=== PATIENT | male | born 1975 | race Two or more races ===

== ENCOUNTER 2017-01-21 16:05 | Inpatient (IN) ==
[2017-01-21 18:12] LABS: Hematocrit 19.9 VOL% (42.0-52.0); Hemoglobin 6.8 GM/DL (14.0-18.0); Immature Granulocytes % 0.6 %; Immature Granulocytes Absolute 0.03 #; Lymphocytes # 0.2 10*3/uL (1.4-4.0); Lymphocytes % 4.3 % (21.2-54.2); Mean Corpuscular HGB Conc 34.2 GM/DL (32-36); Mean Corpuscular Hemoglobin 29 PG (27-34); Mean Corpuscular Volume 84.3 FL (87-102); Mean Platelet Volume 12.9 FL (9.6-12.0); Monocytes # 0.1 10*3/uL (0.11-0.8); Neutrophils # 4.6 10*3/uL (1.4-7.4); Neutrophils % 94.1 % (38.7-73.9); Platelet Count 81 T/CUMM (130-400); Red Blood Count 2.36 MC/CUMM (3.8-5.5); Red Cell Distribution Width 12.4 % (9.3-17.3); White Blood Count 4.9 T/CUMM (4-12)
[2017-01-21 18:32] LABS: Alanine Aminotransferase 26 U/L (16-61); Albumin 3.6 G/DL (3.4-5.0); Alkaline Phosphatase 61 U/L (45-117); Aspartate Amino Transferase 16 U/L (0-37); Bilirubin,Total < 0.39 MG/DL (0.2-1.0); Blood Urea Nitrogen 235 MG/DL (7-18); Glucose 134 MG/DL (74-106); Osmolality,Calculated 344.5 MOS/KG (273-304); Potassium 5.4 MMOL/L (3.5-5.1); Sodium 132 MMOL/L (136-145); Total Protein 6.2 G/DL (6.4-8.3)
[2017-01-21 19:06] LABS: Calcium 5.7 MG/DL (8.5-10.1)
[2017-01-21] MEDS ORDERED: SODIUM CHLORIDE 0.9% 500 ML IV STA (20:10)
[2017-01-21] MEDS ORDERED: CALCIUM GLUCONATE 1,000 MG in SODIUM CHLORIDE 0.9% 100 ML IV ONE (20:11)
[2017-01-21 20:25] LABS: INR 1.1
[2017-01-21] MEDS ORDERED: MAGNESIUM SULF RIDER 2 GM in PREMIX 1 EACH IV STA (20:36)
[2017-01-21] MEDS ORDERED: SODIUM CHLORIDE 0.9% 1,000 ML IV PRN (20:40)
[2017-01-21 20:52] LABS: CKMB % 0.9 %
[2017-01-21] MEDS ORDERED: SODIUM POLYSTYRENE SULFATE 15 GM/60 ML BOTTLE PO STA (20:54)
[2017-01-21] MEDS ORDERED: SODIUM CHLORIDE 0.9% 1,000 ML IV SCH (21:00)
[2017-01-21 21:08] LABS: Ferritin 447.5 ng/ml (26-388)
[2017-01-21 21:09] LABS: Troponin I Only 0.18 NG/ML (0.00-0.045)
[2017-01-21] MEDS ORDERED: SODIUM POLYSTYRENE SULFATE 15 GM/60 ML BOTTLE ONE (21:11)
[2017-01-21 21:23] LABS: Folate 9.5 NG/ML (5.4-24.0)
[2017-01-21 21:25] LABS: ABG Base Excess -13.9 MMOL/L (-2.5-2.5); ABG HCO3 13.4 MMOL/L (20-26); ABG Oxygen Saturation 97.6 % (95-100); ABG PCO2 25.7 MM HG (35-48); ABG PH 7.274 (7.35-7.45); ABG TCO2 11.5 MMOL/L (23-27)
[2017-01-21] MEDS ORDERED: CARVEDILOL 3.125 MG TABLET ONE (21:47)
[2017-01-21] MEDS ORDERED: MAGNESIUM SULF RIDER 50 ML IV ONE (21:47)
[2017-01-21 21:51] LABS: Apearance,Urine CLEAR (Clear); Bilirubin,Urine Negative (Negative); Blood, Urine Small mg/dL (Negative); Glucose,Urine (UA) 50 mg/dL (Negative); Ketones,Urine Negative (Negative); Nitrite,Urine Negative (Negative); Protein,Urine 100 MG/DL; RBC,Urine 1 /HPF (0-4); Urine Color Straw (Yellow); Urine Specific Gravity 1.009 (1.001-1.035); Urine Urobilinogen < 2.0 EU/DL (0.2-1.0); WBC,Urine <1 /HPF (0-6)
[2017-01-21] MEDS: CARVEDILOL 6.25 MG TABLET PO SCH (21:56)
[2017-01-21 21:59] LABS: Barbiturates Screen,Urine Negative (Negative); Benzodiazepines Screen,Urine Negative (Negative); Cannabinoid Screen,Urine Negative (Negative); Opiate Screen,Urine Negative (Negative); Phencyclidine Screen,Urine Negative (Negative)
[2017-01-21 21:59] LABS: Protein/Creatinine Ratio,Urine 3.2 RATIO
[2017-01-21 22:16] LABS: Thyroid Stimulating Hormone 1.14 uIU/ml (0.358-3.74); Uric Acid 8.4 MG/DL (3.5-7.2)
[2017-01-21] MEDS: SODIUM BICARB INJ 100 MEQ in DEXTROSE 5% 1,000 ML IV SCH (22:25)
[2017-01-22 04:06] LABS: Hemoglobin 6.4 GM/DL (14.0-18.0)
[2017-01-22] MEDS: SODIUM BICARB INJ 100 MEQ in DEXTROSE 5% 1,000 ML IV SCH ×4 (04:14→23:41)
[2017-01-22 04:45] LABS: Basophils % 0.2 % (0.0-0.8); Hematocrit 20.1 VOL% (42.0-52.0); Hemoglobin 6.9 GM/DL (14.0-18.0); Immature Granulocytes % 0.3 %; Immature Granulocytes Absolute 0.02 #; Lymphocytes # 0.6 10*3/uL (1.4-4.0); Lymphocytes % 10.3 % (21.2-54.2); Mean Corpuscular HGB Conc 34.3 GM/DL (32-36); Mean Corpuscular Hemoglobin 29 PG (27-34); Mean Corpuscular Volume 84.8 FL (87-102); Mean Platelet Volume 13.3 FL (9.6-12.0); Monocytes # 0.6 10*3/uL (0.11-0.8); Monocytes % 9.8 % (1.7-12.7); Neutrophils # 4.6 10*3/uL (1.4-7.4); Neutrophils % 79.4 % (38.7-73.9); Red Blood Count 2.37 MC/CUMM (3.8-5.5); Red Cell Distribution Width 13.1 % (9.3-17.3); White Blood Count 5.8 T/CUMM (4-12)
[2017-01-22 04:48] LABS: Platelet Count 66 T/CUMM (130-400)
[2017-01-22 05:10] LABS: Potassium 4.2 MMOL/L (3.5-5.1)
[2017-01-22 05:12] LABS: Burr Cells Slight; Elliptocytes Few; Hypochromasia Slight; Platelet Estimate Decreased
[2017-01-22 05:37] LABS: Calcium 5.6 MG/DL (8.5-10.1)
[2017-01-22] MEDS ORDERED: SODIUM CHLORIDE 0.9% 1,000 ML IV PRN (06:47)
[2017-01-22] MEDS ORDERED: CALCIUM GLUCONATE 2,000 MG in SODIUM CHLORIDE 0.9% 100 ML IV ONE (08:40)
[2017-01-22] MEDS ORDERED: CALCIUM GLUCONATE 1,000 MG/10 ML VIAL IV ONE (09:02)
[2017-01-22] MEDS ORDERED: CARVEDILOL 3.125 MG TABLET ONE (09:02)
[2017-01-22] MEDS: CARVEDILOL 6.25 MG TABLET PO SCH ×2 (09:05→20:42)
[2017-01-22 10:29] LABS: Albumin 3.3 G/DL (3.4-5.0); Calcium 6.2 MG/DL (8.5-10.1); Potassium 3.9 MMOL/L (3.5-5.1)
[2017-01-22] MEDS ORDERED: methylPREDNISolone SOD SUC INJ 1,000 MG in SODIUM CHLORIDE 0.9% 100 ML IV ONE (15:00)
[2017-01-22] MEDS ORDERED: CALCIUM GLUCONATE 1,000 MG in SODIUM CHLORIDE 0.9% 100 ML IV ONE (15:00)
[2017-01-22 15:54] LABS: Albumin 3.1 G/DL (3.4-5.0); Calcium 5.9 MG/DL (8.5-10.1); Osmolality,Calculated 351.1 MOS/KG (273-304); Potassium 3.8 MMOL/L (3.5-5.1)
[2017-01-22 16:28] LABS: Hepatitis A Ab IgM Quant 0.25 Index; Hepatitis A Ab IgM Result Negative (Negative); Hepatitis B Core IgM Result Negative (Negative); Hepatitis B Surface Ag Quant < 0.10 Index; Hepatitis B Surface Ag Result Negative (Negative); Hepatitis C Virus Ab Quant < 0.02 Index; Hepatitis C Virus Ab Result Negative (Negative)
[2017-01-23 01:43] LABS: Hematocrit 22.8 VOL% (42.0-52.0); Hemoglobin 7.8 GM/DL (14.0-18.0); Immature Granulocytes % 0.6 %; Immature Granulocytes Absolute 0.02 #; Lymphocytes # 0.1 10*3/uL (1.4-4.0); Lymphocytes % 3.5 % (21.2-54.2); Mean Corpuscular HGB Conc 34.2 GM/DL (32-36); Mean Corpuscular Hemoglobin 29 PG (27-34); Mean Corpuscular Volume 84.8 FL (87-102); Mean Platelet Volume 13.2 FL (9.6-12.0); Monocytes % 1.3 % (1.7-12.7); Neutrophils % 94.6 % (38.7-73.9); Red Blood Count 2.69 MC/CUMM (3.8-5.5); Red Cell Distribution Width 13.2 % (9.3-17.3); White Blood Count 3.2 T/CUMM (4-12)
[2017-01-23 01:50] LABS: Platelet Count 64 T/CUMM (130-400)
[2017-01-23 01:54] LABS: INR 1.2; PT Patient Result 12.5 SECS; Partial Thromboplastin Time 25.9 SECS (0-40)
[2017-01-23 02:11] LABS: Albumin 2.9 G/DL (3.4-5.0)
[2017-01-23 02:15] LABS: Calcium 5.5 MG/DL (8.5-10.1)
[2017-01-23] MEDS ORDERED: CALCIUM GLUCONATE 2,000 MG in SODIUM CHLORIDE 0.9% 100 ML IV ONE ×2 (02:45→13:00)
[2017-01-23 02:55] LABS: Lymphocytes 5 % (20-55); Segmented Neutrophils 94 % (50-85)
[2017-01-23 02:56] LABS: Hypochromasia 1+; Platelet Estimate Decreased
[2017-01-23 02:57] LABS: Ovalocytes Few; Total Cells Counted 100
[2017-01-23] MEDS: SODIUM BICARB INJ 100 MEQ in DEXTROSE 5% 1,000 ML IV SCH ×2 (07:27→15:53)
[2017-01-23] MEDS: PANTOPRAZOLE 20 MG TABLET PO SCH (08:39)
[2017-01-23] MEDS: CARVEDILOL 6.25 MG TABLET PO SCH (08:39)
[2017-01-23 10:13] LABS: Anti SS-A Antibodies < 16 EU/ML; Anti SS-B Antibodies < 16 EU/ML
[2017-01-23] MEDS ORDERED: CLINDAMYCIN INJ 900 MG in PREMIX 1 EACH IV ONE (11:24)
[2017-01-23] MEDS ORDERED: SODIUM CHLORIDE 0.9% 1,000 ML IV PRN (13:00)
[2017-01-23] MEDS ORDERED: BISACODYL 5 MG TABLET PO ONE (13:00)
[2017-01-23] MEDS ORDERED: BUPIVACAINE 0.25% 50 ML VIAL ONE (13:34)
[2017-01-23] MEDS ORDERED: HEPARIN 5,000 UNIT/1 ML VIAL ONE (13:34)
[2017-01-23] MEDS: SODIUM CHLORIDE 0.9% 250 ML IV SCH (14:07)
[2017-01-23] MEDS ORDERED: PROPOFOL 200 MG/20 ML VIAL IV ONE (14:48)
[2017-01-23] MEDS: CARVEDILOL 12.5 MG TABLET PO SCH ×2 (15:42→22:21)
[2017-01-23] MEDS ORDERED: HEPARIN 10,000 UNIT/10 ML VIAL IV PRN (17:42)
[2017-01-23] MEDS: amLODIPine 5 MG TABLET PO SCH (18:38)
[2017-01-23] MEDS: SODIUM BICARBONATE 650 MG TABLET PO SCH ×2 (18:38→22:21)
[2017-01-23] MEDS ORDERED: ZOLPIDEM 5 MG TABLET PO PRN (20:01)
[2017-01-23] MEDS: METHYLPREDNISOLONE SOD SUC IV SCH (22:21)
[2017-01-23] MEDS: SODIUM CHLORIDE 0.9% IV SCH (22:21)
[2017-01-24 06:59] LABS: Hematocrit 30.2 VOL% (42.0-52.0); Hemoglobin 10.8 GM/DL (14.0-18.0); Immature Granulocytes % 0.3 %; Immature Granulocytes Absolute 0.02 #; Lymphocytes # 0.2 10*3/uL (1.4-4.0); Lymphocytes % 3.2 % (21.2-54.2); Mean Corpuscular HGB Conc 35.8 GM/DL (32-36); Mean Corpuscular Hemoglobin 30 PG (27-34); Mean Corpuscular Volume 82.5 FL (87-102); Mean Platelet Volume 12.8 FL (9.6-12.0); Monocytes # 0.1 10*3/uL (0.11-0.8); Monocytes % 0.8 % (1.7-12.7); Neutrophils # 6.1 10*3/uL (1.4-7.4); Neutrophils % 95.7 % (38.7-73.9); Platelet Count 118 T/CUMM (130-400); Red Blood Count 3.66 MC/CUMM (3.8-5.5); Red Cell Distribution Width 13.1 % (9.3-17.3); White Blood Count 6.3 T/CUMM (4-12)
[2017-01-24 07:25] LABS: Burr Cells Slight; Hypochromasia 2+; Lymphocytes 2 % (20-55); Platelet Estimate Decreased; Segmented Neutrophils 97 % (50-85); Total Cells Counted 100
[2017-01-24 07:30] LABS: Albumin 3.3 G/DL (3.4-5.0); Calcium 7.2 MG/DL (8.5-10.1); Osmolality,Calculated 350.8 MOS/KG (273-304)
[2017-01-24] MEDS: SODIUM CHLORIDE 0.9% 250 ML IV SCH ×2 (08:21→14:38)
[2017-01-24] MEDS ORDERED: hydrALAZINE 20 MG/1 ML VIAL IV ONE ×2 (09:59→11:30)
[2017-01-24] MEDS: CARVEDILOL 12.5 MG TABLET PO SCH ×2 (10:34→20:47)
[2017-01-24] MEDS: amLODIPine 5 MG TABLET PO SCH (10:34)
[2017-01-24] MEDS: SODIUM BICARBONATE 650 MG TABLET PO SCH ×3 (10:35→20:47)
[2017-01-24] MEDS: PANTOPRAZOLE 20 MG TABLET PO SCH (10:35)
[2017-01-24] MEDS: hydrALAZINE 20 MG/1 ML VIAL IV PRN ×2 (13:18→22:07)
[2017-01-24 14:54] LABS: Myeloperoxidase Antibodies SEE COMMENTS
[2017-01-24 16:08] LABS: DRVVT Confirmation 0.9 ratio (0.0 - 1.1); DRVVT Mix Ratio (Mayo Reflex) 1.2 ratio (0.0 - 1.1); PT Mix 1:1 (Mayo Reflex) 11.9 sec; Thrombin Time (Bovine), P 20 sec (15 - 23)
[2017-01-24 16:30] LABS: DRVVT Screen Ratio 1.3 ratio (0.0 - 1.1); INR 1.3
[2017-01-24] MEDS: cloNIDine 0.2 MG/24 HR PATCH TRANSDERM SCH (17:37)
[2017-01-24] MEDS: SEVELAMER CARBONATE 800 MG TABLET PO SCH (17:37)
[2017-01-24] MEDS: METHYLPREDNISOLONE SOD SUC IV SCH (20:48)
[2017-01-24] MEDS: SODIUM CHLORIDE 0.9% IV SCH (20:48)
[2017-01-24] MEDS ORDERED: HYDROmorphone 2 MG/1 ML VIAL IV ONE (20:59)
[2017-01-25] MEDS: hydrALAZINE 20 MG/1 ML VIAL IV PRN ×5 (00:57→18:10)
[2017-01-25] MEDS ORDERED: ONDANSETRON 4 MG/2 ML VIAL IV PRN (01:36)
[2017-01-25 07:59] LABS: Calcium 7.2 MG/DL (8.5-10.1); Osmolality,Calculated 338.5 MOS/KG (273-304); Potassium 4.3 MMOL/L (3.5-5.1)
[2017-01-25] MEDS: SODIUM CHLORIDE 0.9% 250 ML IV SCH ×2 (08:45→18:42)
[2017-01-25] MEDS: SEVELAMER CARBONATE 800 MG TABLET PO SCH ×3 (09:34→16:38)
[2017-01-25] MEDS: CARVEDILOL 12.5 MG TABLET PO SCH ×2 (09:34→21:17)
[2017-01-25] MEDS: PANTOPRAZOLE 20 MG TABLET PO SCH (09:34)
[2017-01-25] MEDS: SODIUM BICARBONATE 650 MG TABLET PO SCH ×3 (09:34→21:17)
[2017-01-25] MEDS ORDERED: predniSONE 20 MG TABLET PO SCH ×2 (11:30→17:25)
[2017-01-25] MEDS: ZALEPLON 5 MG CAPSULE PO SCH (21:17)
[2017-01-26 03:41] LABS: Basophils % 0.1 % (0.0-0.8); Hematocrit 28.2 VOL% (42.0-52.0); Hemoglobin 9.8 GM/DL (14.0-18.0); Immature Granulocytes % 0.5 %; Immature Granulocytes Absolute 0.04 #; Lymphocytes # 0.4 10*3/uL (1.4-4.0); Lymphocytes % 4.5 % (21.2-54.2); Mean Corpuscular HGB Conc 34.8 GM/DL (32-36); Mean Corpuscular Hemoglobin 29 PG (27-34); Mean Corpuscular Volume 84.7 FL (87-102); Mean Platelet Volume 13.1 FL (9.6-12.0); Monocytes # 0.8 10*3/uL (0.11-0.8); Monocytes % 10.3 % (1.7-12.7); Neutrophils # 6.6 10*3/uL (1.4-7.4); Neutrophils % 84.6 % (38.7-73.9); Platelet Count 104 T/CUMM (130-400); Red Blood Count 3.33 MC/CUMM (3.8-5.5); Red Cell Distribution Width 13.3 % (9.3-17.3); White Blood Count 7.8 T/CUMM (4-12)
[2017-01-26 04:23] LABS: Albumin 2.8 G/DL (3.4-5.0); Calcium 7.3 MG/DL (8.5-10.1); Osmolality,Calculated 312.1 MOS/KG (273-304); Potassium 4.1 MMOL/L (3.5-5.1)
[2017-01-26 04:54] LABS: Band Neutrophils 2 % (0-10); Lymphocytes 11 % (20-55); Metamyelocytes 4 %; Platelet Estimate Adequate; Segmented Neutrophils 78 % (50-85); Total Cells Counted 100
[2017-01-26] MEDS: SODIUM BICARBONATE 650 MG TABLET PO SCH ×3 (08:29→20:38)
[2017-01-26] MEDS: predniSONE 20 MG TABLET PO SCH ×2 (08:29→09:33)
[2017-01-26] MEDS: SEVELAMER CARBONATE 800 MG TABLET PO SCH ×3 (08:29→17:27)
[2017-01-26] MEDS: PANTOPRAZOLE 20 MG TABLET PO SCH (08:31)
[2017-01-26] MEDS: CARVEDILOL 12.5 MG TABLET PO SCH ×2 (08:31→20:39)
[2017-01-26] MEDS: hydroCHLOROthiazide 25 MG TABLET PO SCH (08:31)
[2017-01-26] MEDS: hydrALAZINE 20 MG/1 ML VIAL IV PRN (12:02)
[2017-01-26] MEDS ORDERED: HEPARIN 10,000 UNIT/10 ML VIAL IV PRN (18:36)
[2017-01-26] MEDS: ZALEPLON 5 MG CAPSULE PO SCH (20:38)
[2017-01-27] MEDS: hydroCHLOROthiazide 25 MG TABLET PO SCH (08:01)
[2017-01-27] MEDS: PANTOPRAZOLE 20 MG TABLET PO SCH (08:02)
[2017-01-27] MEDS: SEVELAMER CARBONATE 800 MG TABLET PO SCH ×3 (08:02→18:10)
[2017-01-27] MEDS: CARVEDILOL 12.5 MG TABLET PO SCH ×2 (08:02→20:21)
[2017-01-27] MEDS: predniSONE 20 MG TABLET PO SCH (08:02)
[2017-01-27] MEDS: SODIUM BICARBONATE 650 MG TABLET PO SCH ×3 (08:02→20:21)
[2017-01-27] MEDS: ZALEPLON 5 MG CAPSULE PO SCH (20:21)
[2017-01-28] MEDS: hydrALAZINE 20 MG/1 ML VIAL IV PRN ×2 (05:07→08:55)
[2017-01-28 05:09] LABS: Eosinophils % 0.1 % (0.00-10.9); Hematocrit 28.2 VOL% (42.0-52.0); Hemoglobin 9.5 GM/DL (14.0-18.0); Immature Granulocytes % 0.5 %; Immature Granulocytes Absolute 0.04 #; Lymphocytes # 1.1 10*3/uL (1.4-4.0); Lymphocytes % 15.6 % (21.2-54.2); Mean Corpuscular HGB Conc 33.7 GM/DL (32-36); Mean Corpuscular Hemoglobin 29 PG (27-34); Mean Corpuscular Volume 86.8 FL (87-102); Mean Platelet Volume 12.7 FL (9.6-12.0); Monocytes # 0.6 10*3/uL (0.11-0.8); Monocytes % 8.7 % (1.7-12.7); Neutrophils # 5.5 10*3/uL (1.4-7.4); Neutrophils % 75.1 % (38.7-73.9); Red Blood Count 3.25 MC/CUMM (3.8-5.5); White Blood Count 7.3 T/CUMM (4-12)
[2017-01-28 05:16] LABS: Platelet Count 89 T/CUMM (130-400)
[2017-01-28 05:36] LABS: Platelet Estimate Decreased
[2017-01-28 05:39] LABS: Albumin 2.6 G/DL (3.4-5.0); Bilirubin,Total 0.5 MG/DL (0.2-1.0); Calcium 6.7 MG/DL (8.5-10.1); Osmolality,Calculated 331.7 MOS/KG (273-304); Potassium 4.4 MMOL/L (3.5-5.1); Total Protein 4.5 G/DL (6.4-8.3)
[2017-01-28] MEDS: SODIUM BICARBONATE 650 MG TABLET PO SCH ×3 (08:52→21:19)
[2017-01-28] MEDS: SEVELAMER CARBONATE 800 MG TABLET PO SCH ×3 (08:52→16:49)
[2017-01-28] MEDS: hydroCHLOROthiazide 25 MG TABLET PO SCH (08:53)
[2017-01-28] MEDS: PANTOPRAZOLE 20 MG TABLET PO SCH (08:54)
[2017-01-28] MEDS: predniSONE 20 MG TABLET PO SCH (08:54)
[2017-01-28] MEDS: CARVEDILOL 12.5 MG TABLET PO SCH ×2 (08:54→21:20)
[2017-01-28] MEDS: ZALEPLON 5 MG CAPSULE PO SCH (21:19)
[2017-01-29] MEDS: SEVELAMER CARBONATE 800 MG TABLET PO SCH ×3 (08:42→16:57)
[2017-01-29] MEDS: SODIUM BICARBONATE 650 MG TABLET PO SCH ×3 (08:42→21:42)
[2017-01-29] MEDS: PANTOPRAZOLE 20 MG TABLET PO SCH (08:43)
[2017-01-29] MEDS: predniSONE 20 MG TABLET PO SCH (08:43)
[2017-01-29] MEDS: CARVEDILOL 12.5 MG TABLET PO SCH ×2 (08:43→21:42)
[2017-01-29] MEDS: hydroCHLOROthiazide 25 MG TABLET PO SCH (08:43)
[2017-01-29] MEDS: ZALEPLON 5 MG CAPSULE PO SCH (21:42)
[2017-01-30] MEDS: hydrALAZINE 20 MG/1 ML VIAL IV PRN (05:11)
[2017-01-30 05:55] LABS: Alanine Aminotransferase 28 U/L (16-61); Albumin 2.6 G/DL (3.4-5.0); Alkaline Phosphatase 61 U/L (45-117); Aspartate Amino Transferase 11 U/L (0-37); Bilirubin,Total < 0.39 MG/DL (0.2-1.0); Blood Urea Nitrogen 175 MG/DL (7-18); Calcium 6.9 MG/DL (8.5-10.1); Glucose 94 MG/DL (74-106); Osmolality,Calculated 336.4 MOS/KG (273-304); Potassium 4.2 MMOL/L (3.5-5.1); Sodium 140 MMOL/L (136-145); Total Protein 4.4 G/DL (6.4-8.3)
[2017-01-30] MEDS: predniSONE 20 MG TABLET PO SCH (08:48)
[2017-01-30] MEDS: SEVELAMER CARBONATE 800 MG TABLET PO SCH ×3 (08:48→16:45)
[2017-01-30] MEDS: hydroCHLOROthiazide 25 MG TABLET PO SCH (08:48)
[2017-01-30] MEDS: CARVEDILOL 12.5 MG TABLET PO SCH ×2 (08:48→21:14)
[2017-01-30] MEDS: PANTOPRAZOLE 20 MG TABLET PO SCH (08:48)
[2017-01-30] MEDS: SODIUM BICARBONATE 650 MG TABLET PO SCH ×3 (08:48→21:13)
[2017-01-30] MEDS: ZALEPLON 5 MG CAPSULE PO SCH (21:13)
[2017-01-31] MEDS: cloNIDine 0.2 MG/24 HR PATCH TRANSDERM SCH (09:37)
[2017-01-31] MEDS: CARVEDILOL 12.5 MG TABLET PO SCH ×2 (09:38→22:44)
[2017-01-31] MEDS: SEVELAMER CARBONATE 800 MG TABLET PO SCH ×3 (09:38→16:54)
[2017-01-31] MEDS: PANTOPRAZOLE 20 MG TABLET PO SCH (09:38)
[2017-01-31] MEDS: predniSONE 20 MG TABLET PO SCH (09:38)
[2017-01-31] MEDS: hydroCHLOROthiazide 25 MG TABLET PO SCH (09:38)
[2017-01-31] MEDS: SODIUM BICARBONATE 650 MG TABLET PO SCH ×3 (09:38→22:44)
[2017-01-31] MEDS: ZALEPLON 5 MG CAPSULE PO SCH (22:44)
[2017-02-01] MEDS: SODIUM BICARBONATE 650 MG TABLET PO SCH ×3 (08:57→20:55)
[2017-02-01] MEDS: PANTOPRAZOLE 20 MG TABLET PO SCH (08:57)
[2017-02-01] MEDS: SEVELAMER CARBONATE 800 MG TABLET PO SCH ×3 (08:57→16:40)
[2017-02-01] MEDS: predniSONE 20 MG TABLET PO SCH (08:57)
[2017-02-01] MEDS: CARVEDILOL 12.5 MG TABLET PO SCH ×2 (08:57→20:55)
[2017-02-01] MEDS: hydroCHLOROthiazide 25 MG TABLET PO SCH (08:57)
[2017-02-01] MEDS: ZALEPLON 5 MG CAPSULE PO SCH (20:55)
[2017-02-02] MEDS: hydroCHLOROthiazide 25 MG TABLET PO SCH (09:44)
[2017-02-02] MEDS: SEVELAMER CARBONATE 800 MG TABLET PO SCH ×3 (09:44→17:16)
[2017-02-02] MEDS: predniSONE 20 MG TABLET PO SCH (09:45)
[2017-02-02] MEDS: SODIUM BICARBONATE 650 MG TABLET PO SCH ×3 (09:45→21:17)
[2017-02-02] MEDS: PANTOPRAZOLE 20 MG TABLET PO SCH (09:46)
[2017-02-02] MEDS: CARVEDILOL 12.5 MG TABLET PO SCH ×2 (09:46→21:17)
[2017-02-03] MEDS: SEVELAMER CARBONATE 800 MG TABLET PO SCH ×3 (08:32→16:43)
[2017-02-03] MEDS: hydroCHLOROthiazide 25 MG TABLET PO SCH (08:33)
[2017-02-03] MEDS: SODIUM BICARBONATE 650 MG TABLET PO SCH ×3 (08:33→20:41)
[2017-02-03] MEDS: CARVEDILOL 12.5 MG TABLET PO SCH ×2 (08:34→20:41)
[2017-02-03] MEDS: PANTOPRAZOLE 20 MG TABLET PO SCH (08:34)
[2017-02-03] MEDS: predniSONE 20 MG TABLET PO SCH (08:34)
[2017-02-04 05:50] LABS: Basophils % 0.1 % (0.0-0.8); Hematocrit 24.8 VOL% (42.0-52.0); Hemoglobin 8.1 GM/DL (14.0-18.0); Immature Granulocytes % 0.4 %; Immature Granulocytes Absolute 0.03 #; Lymphocytes # 0.9 10*3/uL (1.4-4.0); Lymphocytes % 12.5 % (21.2-54.2); Mean Corpuscular HGB Conc 32.7 GM/DL (32-36); Mean Corpuscular Hemoglobin 29 PG (27-34); Mean Corpuscular Volume 88.6 FL (87-102); Mean Platelet Volume 12.1 FL (9.6-12.0); Monocytes # 0.7 10*3/uL (0.11-0.8); Monocytes % 10.5 % (1.7-12.7); Neutrophils # 5.3 10*3/uL (1.4-7.4); Neutrophils % 76.5 % (38.7-73.9); Red Cell Distribution Width 12.9 % (9.3-17.3)
[2017-02-04 05:53] LABS: Platelet Count 72 T/CUMM (130-400)
[2017-02-04 06:17] LABS: Albumin 2.5 G/DL (3.4-5.0); Bilirubin,Total 0.6 MG/DL (0.2-1.0); Calcium 7.1 MG/DL (8.5-10.1); Potassium 4.4 MMOL/L (3.5-5.1); Total Protein 4.3 G/DL (6.4-8.3)
[2017-02-04] MEDS: CARVEDILOL 12.5 MG TABLET PO SCH ×2 (09:02→20:44)
[2017-02-04] MEDS: predniSONE 20 MG TABLET PO SCH (09:02)
[2017-02-04] MEDS: SEVELAMER CARBONATE 800 MG TABLET PO SCH ×3 (09:02→16:57)
[2017-02-04] MEDS: PANTOPRAZOLE 20 MG TABLET PO SCH (09:02)
[2017-02-04] MEDS: SODIUM BICARBONATE 650 MG TABLET PO SCH ×3 (09:02→20:44)
[2017-02-04] MEDS: hydroCHLOROthiazide 25 MG TABLET PO SCH (09:02)
[2017-02-05] MEDS: predniSONE 20 MG TABLET PO SCH (09:09)
[2017-02-05] MEDS: SEVELAMER CARBONATE 800 MG TABLET PO SCH ×3 (09:09→16:16)
[2017-02-05] MEDS: hydroCHLOROthiazide 25 MG TABLET PO SCH (09:09)
[2017-02-05] MEDS: SODIUM BICARBONATE 650 MG TABLET PO SCH ×3 (09:09→20:28)
[2017-02-05] MEDS: CARVEDILOL 12.5 MG TABLET PO SCH ×2 (09:09→20:28)
[2017-02-05] MEDS: PANTOPRAZOLE 20 MG TABLET PO SCH (09:09)
[2017-02-06] MEDS: SODIUM BICARBONATE 650 MG TABLET PO SCH ×3 (10:16→22:32)
[2017-02-06] MEDS: SEVELAMER CARBONATE 800 MG TABLET PO SCH ×3 (10:16→17:23)
[2017-02-06] MEDS: hydroCHLOROthiazide 25 MG TABLET PO SCH (13:08)
[2017-02-06] MEDS: PANTOPRAZOLE 20 MG TABLET PO SCH (13:08)
[2017-02-06] MEDS: predniSONE 20 MG TABLET PO SCH (13:09)
[2017-02-06] MEDS: CARVEDILOL 12.5 MG TABLET PO SCH ×2 (13:09→22:33)
[2017-02-07] MEDS: hydroCHLOROthiazide 25 MG TABLET PO SCH (09:24)
[2017-02-07] MEDS: SEVELAMER CARBONATE 800 MG TABLET PO SCH ×3 (09:24→16:57)
[2017-02-07] MEDS: CARVEDILOL 12.5 MG TABLET PO SCH ×2 (09:25→21:15)
[2017-02-07] MEDS: SODIUM BICARBONATE 650 MG TABLET PO SCH ×3 (09:25→21:15)
[2017-02-07] MEDS: PANTOPRAZOLE 20 MG TABLET PO SCH (09:25)
[2017-02-07] MEDS: predniSONE 20 MG TABLET PO SCH (09:26)
[2017-02-07] MEDS: cloNIDine 0.2 MG/24 HR PATCH TRANSDERM SCH (09:27)
[2017-02-07] MEDS: POLYETHYLENE GLYCOL POWDER 17 GM PACK PO PRN (18:31)
[2017-02-08 03:44] LABS: Basophils % 0.2 % (0.0-0.8); Hematocrit 21.9 VOL% (42.0-52.0); Hemoglobin 7.3 GM/DL (14.0-18.0); Immature Granulocytes % 0.5 %; Immature Granulocytes Absolute 0.03 #; Lymphocytes % 15.7 % (21.2-54.2); Mean Corpuscular HGB Conc 33.3 GM/DL (32-36); Mean Corpuscular Hemoglobin 29 PG (27-34); Mean Corpuscular Volume 88.3 FL (87-102); Mean Platelet Volume 12.1 FL (9.6-12.0); Monocytes # 0.7 10*3/uL (0.11-0.8); Monocytes % 11.1 % (1.7-12.7); Neutrophils # 4.6 10*3/uL (1.4-7.4); Neutrophils % 72.5 % (38.7-73.9); Platelet Count 82 T/CUMM (130-400); Red Blood Count 2.48 MC/CUMM (3.8-5.5); Red Cell Distribution Width 12.6 % (9.3-17.3); White Blood Count 6.4 T/CUMM (4-12)
[2017-02-08 04:04] LABS: Calcium 6.8 MG/DL (8.5-10.1); Magnesium 1.9 MG/DL (1.8-2.4); Potassium 4.4 MMOL/L (3.5-5.1)
[2017-02-08 05:14] LABS: Giant Platelets Few; Hypochromasia 1+; Ovalocytes Slight; Platelet Estimate Decreased
[2017-02-08] MEDS: hydroCHLOROthiazide 25 MG TABLET PO SCH (09:07)
[2017-02-08] MEDS: CARVEDILOL 12.5 MG TABLET PO SCH ×2 (09:07→20:30)
[2017-02-08] MEDS: SEVELAMER CARBONATE 800 MG TABLET PO SCH ×3 (09:07→17:06)
[2017-02-08] MEDS: SODIUM BICARBONATE 650 MG TABLET PO SCH ×3 (09:07→20:29)
[2017-02-08] MEDS: PANTOPRAZOLE 20 MG TABLET PO SCH (09:07)
[2017-02-08] MEDS: predniSONE 20 MG TABLET PO SCH (09:07)
[2017-02-08] MEDS ORDERED: EPOETIN ALFA 10,000 UNIT/1 ML VIAL IV PRN (11:02)
[2017-02-08] MEDS: amLODIPine 5 MG TABLET PO SCH (13:57)
[2017-02-09] MEDS: cloNIDine 0.1 MG TABLET PO PRN (04:55)
[2017-02-09] MEDS: PANTOPRAZOLE 20 MG TABLET PO SCH (10:03)
[2017-02-09] MEDS: SEVELAMER CARBONATE 800 MG TABLET PO SCH ×3 (10:03→17:25)
[2017-02-09] MEDS: hydroCHLOROthiazide 25 MG TABLET PO SCH (10:03)
[2017-02-09] MEDS: SODIUM BICARBONATE 650 MG TABLET PO SCH ×3 (10:03→20:36)
[2017-02-09] MEDS: predniSONE 20 MG TABLET PO SCH (10:04)
[2017-02-09] MEDS: CARVEDILOL 12.5 MG TABLET PO SCH ×2 (10:04→20:37)
[2017-02-09] MEDS: amLODIPine 5 MG TABLET PO SCH (10:04)
[2017-02-10] MEDS: SEVELAMER CARBONATE 800 MG TABLET PO SCH ×3 (12:56→18:17)
[2017-02-10] MEDS: CARVEDILOL 12.5 MG TABLET PO SCH (13:00)
[2017-02-10] MEDS: predniSONE 20 MG TABLET PO SCH (13:00)
[2017-02-10] MEDS: PANTOPRAZOLE 20 MG TABLET PO SCH (13:00)
[2017-02-10] MEDS: amLODIPine 5 MG TABLET PO SCH (13:00)
[2017-02-10] MEDS: hydroCHLOROthiazide 25 MG TABLET PO SCH (13:00)
[2017-02-10] MEDS: SODIUM BICARBONATE 650 MG TABLET PO SCH ×2 (13:00→17:54)
[2017-02-11] MEDS: SODIUM BICARBONATE 650 MG TABLET PO SCH ×4 (01:15→21:52)
[2017-02-11] MEDS: CARVEDILOL 12.5 MG TABLET PO SCH ×3 (01:16→21:52)
[2017-02-11] MEDS: predniSONE 20 MG TABLET PO SCH (08:54)
[2017-02-11] MEDS: amLODIPine 5 MG TABLET PO SCH (08:55)
[2017-02-11] MEDS: PANTOPRAZOLE 20 MG TABLET PO SCH (08:55)
[2017-02-11] MEDS: hydroCHLOROthiazide 25 MG TABLET PO SCH (08:55)
[2017-02-11] MEDS: SEVELAMER CARBONATE 800 MG TABLET PO SCH ×3 (08:55→21:51)
[2017-02-11] MEDS: POLYETHYLENE GLYCOL POWDER 17 GM PACK PO PRN (21:58)
[2017-02-12] MEDS: predniSONE 20 MG TABLET PO SCH (11:27)
[2017-02-12] MEDS: hydroCHLOROthiazide 25 MG TABLET PO SCH (11:28)
[2017-02-12] MEDS: PANTOPRAZOLE 20 MG TABLET PO SCH (11:28)
[2017-02-12] MEDS: SODIUM BICARBONATE 650 MG TABLET PO SCH ×3 (11:28→21:33)
[2017-02-12] MEDS: amLODIPine 5 MG TABLET PO SCH (11:28)
[2017-02-12] MEDS: CARVEDILOL 12.5 MG TABLET PO SCH ×2 (11:29→21:33)
[2017-02-12] MEDS: SEVELAMER CARBONATE 800 MG TABLET PO SCH ×3 (11:30→18:13)
[2017-02-13] MEDS: SODIUM BICARBONATE 650 MG TABLET PO SCH ×3 (13:53→20:20)
[2017-02-13] MEDS: predniSONE 20 MG TABLET PO SCH (13:54)
[2017-02-13] MEDS: hydroCHLOROthiazide 25 MG TABLET PO SCH (13:54)
[2017-02-13] MEDS: CARVEDILOL 12.5 MG TABLET PO SCH ×2 (13:54→20:19)
[2017-02-13] MEDS: PANTOPRAZOLE 20 MG TABLET PO SCH (13:54)
[2017-02-13] MEDS: amLODIPine 5 MG TABLET PO SCH (13:54)
[2017-02-13] MEDS: SEVELAMER CARBONATE 800 MG TABLET PO SCH ×3 (13:54→18:30)
[2017-02-14] MEDS: cloNIDine 0.1 MG TABLET PO PRN ×2 (04:24→09:00)
[2017-02-14] MEDS: cloNIDine 0.2 MG/24 HR PATCH TRANSDERM SCH (08:57)
[2017-02-14] MEDS: hydroCHLOROthiazide 25 MG TABLET PO SCH (08:59)
[2017-02-14] MEDS: PANTOPRAZOLE 20 MG TABLET PO SCH (08:59)
[2017-02-14] MEDS: SEVELAMER CARBONATE 800 MG TABLET PO SCH ×3 (08:59→16:45)
[2017-02-14] MEDS: amLODIPine 5 MG TABLET PO SCH (08:59)
[2017-02-14] MEDS ORDERED: predniSONE 10 MG TABLET PO SCH (09:00)
[2017-02-14] MEDS: CARVEDILOL 12.5 MG TABLET PO SCH ×2 (09:00→20:28)
[2017-02-14] MEDS: SODIUM BICARBONATE 650 MG TABLET PO SCH ×3 (09:00→20:28)
[2017-02-15] MEDS: PANTOPRAZOLE 20 MG TABLET PO SCH (08:32)
[2017-02-15] MEDS: SEVELAMER CARBONATE 800 MG TABLET PO SCH ×3 (08:32→16:45)
[2017-02-15] MEDS: amLODIPine 5 MG TABLET PO SCH (08:32)
[2017-02-15] MEDS: predniSONE 20 MG TABLET PO SCH (08:33)
[2017-02-15] MEDS: hydroCHLOROthiazide 25 MG TABLET PO SCH (08:33)
[2017-02-15] MEDS: SODIUM BICARBONATE 650 MG TABLET PO SCH ×3 (08:33→21:25)
[2017-02-15] MEDS: CARVEDILOL 12.5 MG TABLET PO SCH ×2 (08:33→21:25)
[2017-02-15 09:40] LABS: Hematocrit 25.8 VOL% (42.0-52.0)
[2017-02-15] MEDS: POLYETHYLENE GLYCOL POWDER 17 GM PACK PO PRN (18:55)
[2017-02-16] MEDS: SEVELAMER CARBONATE 800 MG TABLET PO SCH ×3 (10:00→17:18)
[2017-02-16] MEDS: SODIUM BICARBONATE 650 MG TABLET PO SCH ×3 (10:01→21:40)
[2017-02-16] MEDS: amLODIPine 5 MG TABLET PO SCH (10:01)
[2017-02-16] MEDS: PANTOPRAZOLE 20 MG TABLET PO SCH (10:02)
[2017-02-16] MEDS: CARVEDILOL 12.5 MG TABLET PO SCH ×2 (10:02→21:40)
[2017-02-16] MEDS: predniSONE 20 MG TABLET PO SCH (10:03)
[2017-02-17] MEDS: SODIUM BICARBONATE 650 MG TABLET PO SCH ×3 (09:30→22:05)
[2017-02-17] MEDS: SEVELAMER CARBONATE 800 MG TABLET PO SCH ×3 (09:30→17:08)
[2017-02-17] MEDS: predniSONE 10 MG TABLET PO SCH (09:31)
[2017-02-17] MEDS: CARVEDILOL 12.5 MG TABLET PO SCH ×2 (09:31→22:05)
[2017-02-17] MEDS: PANTOPRAZOLE 20 MG TABLET PO SCH (09:31)
[2017-02-17] MEDS: amLODIPine 5 MG TABLET PO SCH (09:31)
[2017-02-18] MEDS: cloNIDine 0.1 MG TABLET PO PRN ×2 (04:31→09:26)
[2017-02-18] MEDS: CARVEDILOL 12.5 MG TABLET PO SCH ×2 (09:26→22:06)
[2017-02-18] MEDS: predniSONE 10 MG TABLET PO SCH (09:26)
[2017-02-18] MEDS: amLODIPine 5 MG TABLET PO SCH (09:26)
[2017-02-18] MEDS: PANTOPRAZOLE 20 MG TABLET PO SCH (09:26)
[2017-02-18] MEDS: SODIUM BICARBONATE 650 MG TABLET PO SCH ×3 (09:26→22:06)
[2017-02-18] MEDS: SEVELAMER CARBONATE 800 MG TABLET PO SCH ×3 (09:26→18:25)
[2017-02-19] MEDS: cloNIDine 0.1 MG TABLET PO PRN (04:55)
[2017-02-19] MEDS: SODIUM BICARBONATE 650 MG TABLET PO SCH ×3 (09:02→21:45)
[2017-02-19] MEDS: amLODIPine 5 MG TABLET PO SCH (09:02)
[2017-02-19] MEDS: CARVEDILOL 12.5 MG TABLET PO SCH ×2 (09:02→21:45)
[2017-02-19] MEDS: SEVELAMER CARBONATE 800 MG TABLET PO SCH ×3 (09:02→16:58)
[2017-02-19] MEDS: PANTOPRAZOLE 20 MG TABLET PO SCH (09:03)
[2017-02-19] MEDS: predniSONE 10 MG TABLET PO SCH (09:03)
[2017-02-20] MEDS: SEVELAMER CARBONATE 800 MG TABLET PO SCH ×2 (08:29→15:54)
[2017-02-20] MEDS: SODIUM BICARBONATE 650 MG TABLET PO SCH ×2 (08:30→15:54)
[2017-02-20] MEDS: amLODIPine 5 MG TABLET PO SCH (08:30)
[2017-02-20] MEDS: predniSONE 10 MG TABLET PO SCH (08:30)
[2017-02-20] MEDS: CARVEDILOL 12.5 MG TABLET PO SCH (08:30)
[2017-02-20] MEDS: PANTOPRAZOLE 20 MG TABLET PO SCH (08:31)
[2017-02-20 16:12] VITALS: BP 161/92
== END 2017-02-20 16:25 | disposition home or self-care (01) | DRG 674 ==
LOC: N.ED 16:05 → SUATTDRO 20:38 → N.EDINP 20:38 → N.4E 01-22 10:25
PROVIDERS: ADMIT Internal Medicine; ATTEND Internal Medicine